=== PATIENT | female | born 2000 | race Caucasian/White ===

== ENCOUNTER 2020-03-27 01:11 | Emergency (ER) | payer OTHER, SELFPAY ==
--- NOTE | ~2020-03-27 | CT_ITS ---
EXAMINATION: CT abdomen pelvis w con DATE: 03/27/2020 02:53 INDICATION: Left upper quadrant abdominal pain TECHNIQUE: Computed tomography (CT) of the abdomen and pelvis was performed with 100 mL Omnipaque-350 intravenous contrast. Automated exposure control and iterative reconstruction technique were employe d. The dose-length product was 494.97 mGy-cm. COMPARISON: None FINDINGS: Lung bases are clear. Heart size is normal. No pericardial or pleural effusion. Liver, gallbladder, s pleen, pancreas, bilateral adrenal glands and kidneys are normal. Moderate amount of stool scattered throughout the colon. Small bowel and appendix are normal. Bladder, uterus and bilateral adnexa are u nremarkable. Small amount of likely physiologic free fluid in the cul-de-sac. No pathologically enlar ged abdominal or pelvic lymphadenopathy. Bones are unremarkable. IMPRESSION: 1. No acute intra-abdominal/pelvic process. Reviewed, dictated and finalized at location A.
[2020-03-27 01:14] VITALS: BP 133/79; PULSE 84; RESP 16; TEMP 36.2; O2SAT 100
--- NOTE | 2020-03-27 01:28 | ED.ABDPAIN ---
HPI - Abdominal Pain General Chief Complaint: Abdominal Pain Stated Complaint: abd pain, nausea Time Seen by Provider: 03/27/20 01:15 Source: RN notes reviewed History of Present Illness HPI narrative: Patient presents emergency department from home for abdominal pain. Patient states pain began 24 hours ago. Pain is located in left upper quadrant and described as gnawing in nature. Patient states the pain does not radiate associated with nausea denies any fevers or chills chest pain shortness of breath vomiting diarrhea or any other symptoms. Patient states she did take ibuprofen this evening with minimal relief Related Data Allergies Allergy/AdvReac Type Severity Reaction Status Date / Time No Known Allergies Allergy Verified 03/27/20 01:13 Review of Systems Review of Systems: Narrative: Gen.: Denies fevers or chills ENT: Denies congestion Respiratory: Denies shortness of breath or cough CV: Denies chest pain or palpitations GI: See HPI denies burning, urgency, frequency or hematuria Musculoskeletal: Denies back pain or muscle pain Neuro: Denies numbness, tingling, weakness or focal weakness Skin: Denies rash Except as documented, all other systems reviewed and negative [facility] Past Medical History Medical History (Updated 03/27/20 @ 05:14 by Ash Carlson DO) No significant past medical history Family History Family History (Updated 07/05/14 @ 07:13 by DOCTOR UNKNOWN) Mother Family history of lupus erythematosus Social History Social History Smoking status: Never smoker Alcohol intake: never Gender identity (if verbalized by the patient): Female Exam Narrative: Exam Narrative: APPEARANCE: No acute distress, nontoxic, resting in bed HEENT: Normocephalic, atraumatic, OMM RESPIRATORY: No respiratory distress, clear to auscultation bilaterally with no rhonchi wheezing or rales CARDIOVASCULAR: RRR s murmur ABDOMINAL: Soft, nondistended, tender palpation epigastric left upper quadrant, no tenderness right upper quadrant, right lower quadrant left lower quadrant, no rebound or guarding MUSCULOSKELETAl: Moves all extremities. No clubbing, cyanosis or edema. NEURO: Awake and alert. Following commands, speech normal, no focal deficits SKIN:: Warm, dry. Normal Color PSYCHIATRIC: Normal affect/mood Course Course Emergency Course: Patient states that they are feeling much better at this time. States abdominal pain has resolved. Repeat abdominal exam shows the patient's abdomen to be soft and nontender. Discussed with patient results of workup and diagnosis. Discussed need for follow-up with primary care physician, reasons to return to the emergency department in proper use of medication. Patient understands and agrees to current treatment plan Vital Signs Vital signs: Vital Signs Temperature 97.2 F L 03/27/20 01:14 Pulse Rate 84 03/27/20 01:14 Respiratory Rate 16 03/27/20 01:14 Blood Pressure 133/79 03/27/20 01:14 Pulse Oximetry 100 03/27/20 01:14 Temperature 97.2 F L 03/27/20 01:14 Pulse Rate 66 03/27/20 05:07 Respiratory Rate 14 03/27/20 05:07 Blood Pressure 123/75 03/27/20 05:07 Pulse Oximetry 100 03/27/20 05:07 MDM - Abdominal Pain MDM Narrative Medical decision making narrative: Patient's abdomen is soft without significant pain or signs of surgical abdomen on serial exams. Lab and x-ray evaluations are reviewed and patient is felt to be a reasonable candidate for outpatient management. Patient was instructed as to limitations of x-ray and laboratory evaluation and encouraged to return to ED or primary physician for repeat exam in 12 hours if continued or worsening pain Lab Data Result diagrams: 03/27/20 01:30 03/27/20 02:08 Labs: Lab Results 03/27/20 03/27/20 03/27/20 Range/Units 01:30 01:30 02:08 WBC 7.0 (4.5-10.0) K/mm3 RBC 4.80 (4.2-5.4) M/mm3 Hgb 15.0
[2020-03-27 01:39] LABS: Basophils Percent Auto 0.6 % (0.2-1.2); Eosinophils Absolute Auto 0.2 K/mm3 (0-0.3); Eosinophils Percent Auto 3.3 % (0-4.4); Hematocrit 42.5 % (37.0-47.0); Immature Granulocyte Absolute 0.01 K/mm3 (0.00-0.031); Immature Granulocyte Percent A 0.1 % (0-0.5); Lymphocytes Absolute Auto 2.97 K/mm3 (0.9-3.2); Lymphocytes Percent Auto 42.7 % (18.3-44.2); Mean Corpuscular HGB Conc 35.3 g/dl (32-36); Mean Corpuscular Hemoglobin 31.3 pg (26-34); Mean Corpuscular Volume 88.5 fl (80-100); Mean Platelet Volume 10.3 fl (7.4-10.4); Monocytes Absolute Auto 0.6 K/mm3 (0.1-0.6); Monocytes Percent Auto 8.5 % (2.6-8.5); Neutrophils Absolute Auto 3.1 K/mm3 (1.3-6.7); Neutrophils Percent Auto 44.8 % (45.5-73.1); Platelet Count Result 328 k/mm3 (150-375); Red Cell Distribution Width 12.3 % (11.5-14.5)
[2020-03-27 01:48] LABS: Add Urine Microscopic? NO; Appearance Urine Clear (Clear); Bilirubin Urine Negative (Negative); Blood Urine Negative (Negative); Color Urine Yellow (Yellow); Glucose Urine UA Negative (Negative); Ketones Urine Negative (Negative); Leukocyte Esterase Ur Negative LEU/UL (Negative); Nitrate Urine Negative (Negative); Protein Urine Negative (Negative); Urobilinogen Urine Negative mg/dL (<2.0)
--- NOTE | 2020-03-27 02:11 | PC.NURSE ---
pt a difficult stick.
[2020-03-27 02:31] LABS: Alanine Aminotransferase 17 U/L (4-35); Albumin Level 4.3 g/dL (3.5-5.1); Alkaline Phosphatase 72 U/L (38-126); Aspartate Amino Transferase 23 U/L (14-36); Bilirubin,Total 0.3 mg/dL (0.2-1.3); Blood Urea Nitrogen 6 mg/dL (7-17); Calcium 9.2 mg/dL (8.4-10.2); Carbon Dioxide 27 mmol/L (22-30); Chloride 102 mmol/L (98-107); Estimated CRCL calculation 128 ml/min; Estimated Glomerular Filt Rate > 60; Glucose 98 mg/dL (65-105); Lipase 31 U/L (23-300); Potassium 3.8 mmol/L (3.4-5.0); Sodium 137 mmol/L (137-145)
[2020-03-27] MEDS: DICYCLOMINE HCL INJ 20 MG/2 ML VIAL IM (03:40)
[2020-03-27 04:15] VITALS: BP 125/71; PULSE 70; RESP 16; O2SAT 100
[2020-03-27] MEDS: MORPHINE SULFATE 4 MG/ML INJ IV PUSH (04:20)
[2020-03-27 05:07] VITALS: BP 123/75; PULSE 66; RESP 14; O2SAT 100
== END 2020-03-27 05:30 | disposition home or self-care (01) ==
PROVIDERS: Emergency Provider Emergency Medicine; PCP Family Medicine
DX: R10.13 Epigastric pain (principal)
CPT/HCPCS: 36415; 74177; 80053; 81003; 81025; 83690; 85025; 96372; 96374; 96375; 99284; A9270; J0131; J0500; J2270; Q9967

== ENCOUNTER 2025-09-27 14:15 | Emergency (ER) | payer OTHER, SELFPAY ==
[2025-09-27 14:33] VITALS: BP 114/74; PULSE 100; RESP 16; TEMP 37.1; O2SAT 100
[2025-09-27 14:41] LABS: EDSTREPNEGPOS1 Negative (Negative)
--- NOTE | 2025-09-27 15:08 | ED.URI ---
HPI - URI/Sore Throat General Chief Complaint: Upper Respiratory Infection Stated Complaint: Strep Symptoms Time Seen by Provider: 09/27/25 14:57 Source: patient and RN notes reviewed Mode of arrival: ambulatory Limitations: no limitations History of Present Illness HPI Narrative: 25-year-old female patient presents today complaining of a 2 day history of sore throat, fatigue with a fever since yesterday up to 101. Denies shortness breath, difficulty swallowing. Denies any known sick contacts. Currently rates her pain 05/17 and has been taking Tylenol without relief. Related Data Allergies Allergy/AdvReac Type Severity Reaction Status Date / Time No Known Allergies Allergy Verified 09/27/25 14:24 [facility] Past Medical History Medical History No significant past medical history Family History Family History Mother Family history of lupus erythematosus Social History Social History Smoking status: Never smoker Alcohol intake: never Substance use: never Living arrangements: with family Occupation/Education: occupation Gender identity (if verbalized by the patient): Female Comments At time of signature, I have reviewed and agree with nursing past medical, surgical, social and family history unless otherwise noted. Please see nursing chart for further information. There is no relevant family history pertinent to the presenting complaint Exam Narrative: GENERAL: Mildly ill-appearing, well-nourished, and in no acute distress. HEAD: Normocephalic, atraumatic. EYES: EOMI. No redness or drainage. Conjunctivae normal. ENT: Mucous membranes pink and moist. Nares clear. No rhinorrhea. TMs normal bilaterally. Throat erythematous. Left tonsil is 3+ with copious white exudate. Right tonsil is 2+ without exudate. Uvula midline. No swelling to the palate. NECK: Normal AROM. Supple. No lymphadenopathy. CHEST: No respiratory distress. Clear to auscultation. HEART: Regular rate and rhythm. No murmur appreciated. EXTREMITIES: Normal range of motion. No edema. SKIN: Warm, dry, no rash. Capillary refill normal. Normal skin turgor. NEURO: No focal deficits. Alert and oriented x3. Gait steady. PSYCH: Normal affect. No signs of depression or anxiety. Course Course Level of Care: Express Care Visit Vital Signs Vital signs: Vital Signs Temperature 98.7 F 09/27/25 14:33 Pulse Rate 100 09/27/25 14:33 Respiratory Rate 16 09/27/25 14:33 Blood Pressure 114/74 09/27/25 14:33 Pulse Oximetry 100 09/27/25 14:33 Temperature 98.7 F 09/27/25 14:33 Pulse Rate 100 09/27/25 14:33 Respiratory Rate 16 09/27/25 14:33 Blood Pressure 114/74 09/27/25 14:33 Pulse Oximetry 100 09/27/25 14:33 Reviewed MDM - URI/Sore Throat MDM Narrative Medical decision making narrative: 25-year-old female patient presents today complaining of a 2 day history of sore throat, fatigue with a fever since yesterday up to 101. Denies shortness breath, difficulty swallowing. Denies any known sick contacts. Currently rates her pain 7/10 and has been taking Tylenol without relief. Upon exam, patient is mildly ill appearing. Left tonsil is 3+ with copious white exudate. Right tonsil is 2+ without exudate. Uvula midline. No swelling to the palate. Rapid strep negative. Culture pending. Due to patient's asymmetrical tonsils with copious white exudate and absence of any additional upper respiratory symptoms with fever, patient will be started on amoxicillin for presumed strep throat. Patient agrees with plan. Vital signs stable. Anticipatory guidance and ED precautions given. Differential Diagnosis Differential diagnosis: Likely upper respiratory infection, viral infection, pharyngitis and other (Strep throat) Lab Data Attestation: I reviewed the patient's lab results. Labs: Lab Results 09/27/25 Range/Units 14:40 POC Grp A Strep Screen Negative (Negative) Critical Care Time Critical Care Time Critical Care Time: No Discharge Plan Discharge Clinical Impression: Acute tonsillitis Qualifiers: Pharyngitis/tonsillitis etiology: unspecified etiology Qualified Code(s): J03.90 - Acute tonsillitis, unspecified Patient Disposition: Home Condition: Stable Instructions: Antibiotic Form, Pharyngitis (ED) Additional Instructions: Please take the amoxicillin as prescribed until gone. You will be notified if your strep culture comes back positive in a few days. At an anti-inflammatory such as Aleve or ibuprofen to your Tylenol if needed for pain. Go to the ER immediately if symptoms worsen to include shortness of breath or difficulty swallowing. Patient Language: Serbian Prescriptions: New amoxicillin 875 mg tablet 875 mg PO Q12H 10 Days Qty: 20 0RF Follow-up/Referrals: PHYSICIAN,YARDAGE CONTROL CLERK [Primary Care Provider, Internal Medicine] Stand Alone Forms: Work/School Release IP Time of Disposition: 15:13
== END 2025-09-27 15:16 | disposition home or self-care (01) ==
PROVIDERS: Emergency Provider Nurse Practitioner
DX: J03.90 Acute tonsillitis, unspecified (principal)
CPT/HCPCS: 87081; 87880; 99213; G0463